=== PATIENT | male | born 1965 | race American Indian/Alaskan Native ===

== ENCOUNTER 2019-08-29 16:12 | Emergency (ER) | payer BC ==
[2019-08-29] MEDS ORDERED: SODIUM CHLORIDE 0.9% 1000 ML 1,000 ML IV ONE ×2 (18:05→22:53)
[2019-08-29] MEDS ORDERED: IBUPROFEN 600 MG TAB PO ONE ×2 (18:07→18:10)
--- NOTE | 2019-08-29 18:07 | Event Note ---
ED Screening Note Date of service: 08/29/19 Time: 18:04 ED Screening Note: 54 y o male presents with fever and hyperglycemia recent diagnosis last week FS: 498 This initial assessment/diagnostic orders/clinical plan/treatment(s) is/are subject to change based on patients health status, clinical progression and re- assessment by fellow clinical providers in the ED. Further treatment and workup at subsequent clinical providers discretion. Patient/guardian urged not to elope from the ED as their condition may be serious if not clinically assessed and managed. Initial orders include: labs,ua, main side eval
[2019-08-29] MEDS ORDERED: INSULIN REGULAR, HUMAN 100 UNITS/1 ML IV ONE (18:24)
[2019-08-29 19:10] LABS: Basophils % (Auto) 0.3 % (0.0-1.8); Hematocrit 39.9 % (35.5-45.6); Hemoglobin 13.4 gm/dl (11.8-15.2); Lymphocytes # (Auto) 0.6 K/mm3 (1.2-5.4); Mean Corpuscular HGB Conc 34 % (32-34); Mean Corpuscular Volume 86 fl (84-94); Monocytes # (Auto) 0.9 K/mm3 (0.0-0.8); Monocytes % (Auto) 9.2 % (0.0-7.3); Platelet Count 149 K/mm3 (140-440); Red Blood Count 4.66 M/mm3 (3.65-5.03); Red Cell Distribution Width 13.7 % (13.2-15.2)
[2019-08-29 19:29] LABS: Alanine Aminotransferase 20 units/L (7-56); Albumin 3.6 g/dL (3.9-5); BUN/Creatinine Ratio 17; Blood Urea Nitrogen 17 mg/dL (9-20); Hemolysis Index 7
[2019-08-29 22:11] LABS: Bilirubin,Urine NEG (Negative); Blood,Urine NEG (Negative); Color,Urine Yellow (Yellow); Mucus,Urine FEW /HPF; Protein,Urine <15 mg/dL mg/dL (Negative); Urobilinogen,Urine < 2.0 mg/dL (<2.0)
[2019-08-29 22:21] LABS: Amphetamine Screen,Urine PRESUMPTIVE NEGATIVE; Benzodiazepines Screen,Urine PRESUMPTIVE NEGATIVE; Cannabinoid Screen,Urine PRESUMPTIVE NEGATIVE; Cocaine Screen,Urine PRESUMPTIVE NEGATIVE; Methadone Screen,Urine PRESUMPTIVE NEGATIVE; Opiate Screen,Urine PRESUMPTIVE NEGATIVE
[2019-08-30] MEDS ORDERED: INSULIN NPH/REGULAR 70/30 INJ SUB-Q ONE (08:36)
[2019-08-30] MEDS ORDERED: INSULIN REGULAR, HUMAN 100 UNITS/1 ML SUB-Q ONE (08:38)
--- NOTE | 2019-08-30 08:47 | Emergency Department Report ---
ED General Adult HPI - General Chief complaint: Hyperglycemia Stated complaint: HIGH GLUCOSE ABOVE 500 Time Seen by Provider: 08/29/19 22:58 Source: patient Mode of arrival: Ambulatory Limitations: No Limitations - History of Present Illness Initial comments: 54 year old -[place] male who recently was diagnosed with diabetes comes in reporting his blood sugars over 500. This also reported patient had an elevated temperature greater than 102. Patient states that he is currently taking metformin 1000 mg twice a day. Patient was recently diagnosed on the 08/27/19. Patient reports he has a meter and has been checking his blood sugars every 2 hours to see if they have gone down. It appears the patient has not started seeing a new primary care provider but has an appointment on Monday. Patient's initial blood sugar upon arrival was 498 dropped down to 462 and now is at 300. Patient has no other complaints. Onset/Timin -: days(s) Severity scale (0 -10): 0 Treatments Prior to Arrival: none - Related Data Previous Rx's Medication Instructions Recorded Last Taken Type Metformin HCl [metFORMIN] 1,000 mg PO BID #60 tablet 08/27/19 Unknown Rx Allergies Allergy/AdvReac Type Severity Reaction Status Date / Time No Known Allergies Allergy Unverified 08/27/19 01:44 ED Review of Systems ROS: Stated complaint: HIGH GLUCOSE ABOVE 500 Other details as noted in HPI Comment: All other systems reviewed and negative ED Past Medical Hx - Past Medical History Previous Medical History?: Yes Hx Diabetes: Yes - Surgical History Past Surgical History?: No - Social History Smoking Status: Never Smoker Substance Use Type: None - Medications Home Medications: Home Medications Medication Instructions Recorded Confirmed Last Taken Type Metformin HCl [metFORMIN] 1,000 mg PO BID #60 tablet 08/27/19 Unknown Rx ED Physical Exam - General Limitations: No Limitations General appearance: alert, in no apparent distress - Head Head exam: Present: atraumatic, normocephalic - Eye Eye exam: Present: normal appearance - ENT ENT exam: Present: mucous membranes moist - Neck Neck exam: Present: normal inspection, full ROM - Respiratory Respiratory exam: Present: normal lung sounds bilaterally. Absent: respiratory distress - Cardiovascular Cardiovascular Exam: Present: regular rate, normal rhythm. Absent: systolic m urmur, diastolic murmur, rubs, gallop - Neurological Exam Neurological exam: Present: alert, oriented X3 - Psychiatric Psychiatric exam: Present: normal affect, normal mood - Skin Skin exam: Present: warm, dry, intact, normal color. Absent: rash ED Course Vital Signs 08/29/19 08/30/19 08/30/19 17:57 07:33 11:04 Temperature 102.5 F H 98.5 F Pulse Rate 109 H 95 H Respiratory 18 18 18 Rate Blood Pressure 109/75 Blood Pressure 125/87 [Right] O2 Sat by Pulse 96 100 99 Oximetry ED Medical Decision Making - Lab Data Result diagrams: 08/29/19 18:29 08/29/19 18:29 - Medical Decision Making 54 year old -[place] male who recently was diagnosed with diabetes comes in reporting his blood sugars over 500. This also reported patient had an elevated temperature greater than 102. Patient states that he is currently taking metformin 1000 mg twice a day. Patient was recently diagnosed on the 08/27/19. Patient reports he has a meter and has been checking his blood sugars every 2 hours to see if they have gone down. It appears the patient has not started seeing a new primary care provider but has an appointment on Monday. Patient's initial blood sugar upon arrival was 498 dropped down to 462 and now is at 300. Patient has no other complaints. Provider picked up patient's chart at 08 15. Initial orders were place for normal saline CBC CMP and UA and UDS normal saline. Insulin 10 units was ordered at 1645 last night on . Reevaluation orders for discontinued and ordered 5 units insulin regular. The reassess her blood sugar in 1 hour. Patient blood sugar after 5 units of insulin is down to 258. Patient be discharged home in stable condition with referral to endocrinology and primary care provider. Critical care attestation.: If time is entered above; I have spent that time in minutes in the direct care of this critically ill patient, excluding procedure time. ED Disposition Clinical Impression: Diabetes Disposition: DC-01 TO HOME OR SELFCARE Is pt being admited?: No Does the pt Need Aspirin: No Condition: Stable Instructions: Diabetes Mellitus Type 2 in Adults (ED) Additional Instructions: Continue taking her metformin as prescribed. It's very important for her to follow up with a primary care provider [place]. I have listed information below for your convenience. Referrals: BETO ARGUETA MD [Primary Care Provider] - 3-5 Days CARLIN RODRIGUEZ MD [Staff Physician] - 3-5 Days JACK LUCAS MD [Staff Physician] - 3-5 Days
[2019-08-30 12:02] VITALS: BP 136/78
== END 2019-08-30 12:01 | disposition home or self-care (01) ==
LOC: ED 16:12
DX: E11.65 Type 2 diabetes mellitus with hyperglycemia (principal); R50.9 Fever, unspecified
CPT/HCPCS: 36415; 80053; 80307; 81001; 82140; 82962; 85025; 87040; 87086; 96360; 96372; 99284; J7030; J1815

== ENCOUNTER 2019-09-03 10:51 | Outpatient (CLI) | payer BC ==
[2019-09-03 11:48] LABS: Chol/HDL Ratio 5.3 %
[2019-09-03 11:52] LABS: Creatinine,Urine 182.1 mg/dL (0.1-20.0); Microalbumin/Creatinine Ratio 19.7 ug/mg
== END 2019-09-03 10:52 | disposition home or self-care (01) ==
LOC: LAB 10:51
PROVIDERS: ATTEND Internal Medicine
DX: Z13.220 Encounter for screening for lipoid disorders (principal); E11.65 Type 2 diabetes mellitus with hyperglycemia
CPT/HCPCS: 36415; 80061; 82043; 83036; 86900; 86901